=== PATIENT | female | born 1995 | race American Indian/Alaskan Native ===

== ENCOUNTER 2021-01-09 09:31 | Emergency (ER) | payer BC ==
[2021-01-09 10:58] LABS: Basophils # (Auto) 0.2 K/mm3 (0.0-0.1); Eosinophils # (Auto) 0.5 K/mm3 (0.0-0.4); Eosinophils % (Auto) 8.1 % (0.0-4.3); Hematocrit 38.6 % (30.3-42.9); Lymphocytes # (Auto) 1.6 K/mm3 (1.2-5.4); Lymphocytes % (Auto) 28.7 % (13.4-35.0); Mean Corpuscular HGB Conc 34 % (30-34); Mean Corpuscular Volume 87 fl (79-97); Monocytes # (Auto) 0.4 K/mm3 (0.0-0.8); Monocytes % (Auto) 6.8 % (0.0-7.3); Platelet Count 227 K/mm3 (140-440); Red Blood Count 4.43 M/mm3 (3.65-5.03); Red Cell Distribution Width 13.2 % (13.2-15.2)
[2021-01-09 11:00] LABS: Bilirubin,Urine NEG (Negative); Blood,Urine NEG (Negative); Color,Urine Straw (Yellow); Protein,Urine <15 mg/dL mg/dL (Negative); Urobilinogen,Urine < 2.0 mg/dL (<2.0)
--- NOTE | 2021-01-09 11:01 | Emergency Department Report ---
HPI - General Chief Complaint: Hypoglycemia Time Seen by Provider: 01/09/21 10:45 - HPI HPI: Room 43 The patient is a 25-year-old female present with a chief complaint of lightheadedness. The patient states for the past week she has had intermittent lightheadedness and has noticed her hands and feet intermittently get numb. The patient states she went to an urgent care facility 4 days ago and had labs drawn. The patient states she was diagnosed with a UTI and given prescription for antibiotics. The patient states after leaving urgent care she received a telephone call from the staff stating that her glucose was low at 34 and she was encouraged to eat. The patient states today she continued to have the lightheadedness prompted her to come to the emergency department. Patient denies chest pain, shortness of breath, cough, fever, nausea vomiting or dysuria. Patient denies any known sick contacts ED Past Medical Hx - Past Medical History Previous Medical History?: No - Surgical History Past Surgical History?: No - Family History Family history: no significant - Social History Smoking Status: Never Smoker Substance Use Type: None (Denies illicit drug use) ED Review of Systems ROS: Stated complaint: BLOOD SUGAR Other details as noted in HPI Constitutional: denies: fever Eyes: denies: eye pain ENT: denies: throat pain Respiratory: denies: cough, shortness of breath Cardiovascular: denies: chest pain Endocrine: no symptoms reported Gastrointestinal: denies: abdominal pain, nausea, vomiting Genitourinary: denies: dysuria Musculoskeletal: denies: back pain Neurological: other (Lightheadedness). denies: headache Physical Exam - Physical Exam Vital Signs: Vital Signs 01/09/21 01/09/21 01/09/21 09:38 09:47 10:41 Temperature 98.3 F Pulse Rate 94 H 68 Respiratory 18 18 18 Rate Blood Pressure 134/76 128/68 [Right] O2 Sat by Pulse 100 99 Oximetry Physical Exam: GENERAL: The patient is well-developed well-nourished female sitting on chair not appearing to be in acute distress. [] HEENT: Normocephalic. Atraumatic. Extraocular motions are intact. Patient has moist mucous membranes. NECK: Supple. Trachea midline CHEST/LUNGS: Clear to auscultation. There is no respiratory distress noted. HEART/CARDIOVASCULAR: Regular. There is no tachycardia. There is no gallop rub or murmur. ABDOMEN: Abdomen is soft, nontender. Patient has normal bowel sounds. There is no abdominal distention. SKIN: There is no rash. There is no edema. There is no diaphoresis. NEURO: The patient is awake, alert, and oriented. The patient is cooperative. The patient has no focal neurologic deficits. The patient has normal speech. Cranial nerves II through XII grossly intact. No dysmetria noted with finger -to-nose bilaterally. No nystagmus MUSCULOSKELETAL: There is no evidence of acute injury. ED Course Vital Signs 01/09/21 01/09/21 01/09/21 09:38 09:47 10:41 Temperature 98.3 F Pulse Rate 94 H 68 Respiratory 18 18 18 Rate Blood Pressure 134/76 128/68 [Right] O2 Sat by Pulse 100 99 Oximetry ED Medical Decision Making - Lab Data Result diagrams: 01/09/21 10:13 01/09/21 10:10 Laboratory Tests 01/09/21 01/09/21 01/09/21 09:45 10:10 10:13 WBC 5.7 RBC 4.43 Hgb 13.0 Hct 38.6 MCV 87 MCH 29 MCHC 34 RDW 13.2 Plt Count 227 Lymph % (Auto) 28.7 [place] % (Auto) 6.8 Eos % (Auto) 8.1 H Baso % (Auto) 3.0 H Lymph # (Auto) 1.6 [place] # (Auto) 0.4 Eos # (Auto) 0.5 H Baso # (Auto) 0.2 H Seg Neutrophils % 53.4 Seg Neutrophils # 3.0 D-Dimer Sodium 139 Potassium 4.1 Chloride 100.9 Carbon Dioxide 26 Anion Gap 16 BUN 11 Creatinine 0.6 Estimated GFR > 60 BUN/Creatinine Ratio 18 Glucose 92 POC Glucose 105 Calcium 9.2 TSH Free T4 HCG, Qual Urine Color Urine Turbidity Urine pH Ur Specific [place] Urine Protein Urine Glucose (UA) Urine Ketones Urine Blood Urine Nitrite Urine Bilirubin Urine Urobilinogen Ur Leukocyte Esterase Urine WBC (Auto) Urine RBC (Auto) U Epithel Cells (Auto) 01/09/21 01/09/21 01/09/21 10:20 11:08 11:08 WBC RBC Hgb Hct MCV MCH MCHC RDW Plt Count Lymph % (Auto) [place] % (Auto) Eos % (Auto) Baso % (Auto) Lymph # (Auto) [place] # (Auto) Eos # (Auto) Baso # (Auto) Seg Neutrophils % Seg Neutrophils # D-Dimer < 135.00 Sodium Potassium Chloride Carbon Dioxide Anion Gap BUN Creatinine Estimated GFR BUN/Creatinine Ratio Glucose POC Glucose Calcium TSH 1.390 Free T4 1.15 HCG, Qual Urine Color Straw Urine Turbidity Clear Urine pH 7.0 Ur Specific [place] 1.005 Urine Protein <15 mg/dl Urine Glucose (UA) Neg Urine Ketones Neg Urine Blood Neg Urine Nitrite Neg Urine Bilirubin Neg Urine Urobilinogen < 2.0 Ur Leukocyte Esterase Neg Urine WBC (Auto) 1.0 Urine RBC (Auto) 1.0 U Epithel Cells (Auto) 3.0 01/09/21 11:08 WBC RBC Hgb Hct MCV MCH MCHC RDW Plt Count Lymph % (Auto) [place] % (Auto) Eos % (Auto) Baso % (Auto) Lymph # (Auto) [place] # (Auto) Eos # (Auto) Baso # (Auto) Seg Neutrophils % Seg Neutrophils # D-Dimer Sodium Potassium Chloride Carbon Dioxide Anion Gap BUN Creatinine Estimated GFR BUN/Creatinine Ratio Glucose POC Glucose Calcium TSH Free T4 HCG, Qual Negative Urine Color Urine Turbidity Urine pH Ur Specific [place] Urine Protein Urine Glucose (UA) Urine Ketones Urine Blood Urine Nitrite Urine Bilirubin Urine Urobilinogen Ur Leukocyte Esterase Urine WBC (Auto) Urine RBC (Auto) U Epithel Cells (Auto) - EKG Data -: EKG Interpreted by Ak EKG shows normal: sinus rhythm Rate: normal - EKG Data When compared to previous EKG there are: previous EKG unavailable Interpretation: other (No ischemic changes seen) - Differential Diagnosis Dehydration, symptomatic anemia, electrolyte abnormality, Critical care attestation.: If time is entered above; I have spent that time in minutes in the direct care of this critically ill patient, excluding procedure time. ED Disposition Clinical Impression: Lightheadedness Disposition: DC-01 TO HOME OR SELFCARE Is pt being admited?: No Does the pt Need Aspirin: No Condition: Stable Instructions: Dizziness, [id number] Additional Instructions: Return to the emergency department should you develop worsening symptoms, inability to tolerate food or liquids, high fever or any other concerns Referrals: [facility] [Provider Group] - 3-5 Days Time of Disposition: 13:12
[2021-01-09 11:12] LABS: Blood Urea Nitrogen 11 mg/dL (7-17); Calcium 9.2 mg/dL (8.4-10.2); Hemolysis Index 65
[2021-01-09 11:17] LABS: BUN/Creatinine Ratio 18
[2021-01-09 11:50] LABS: Free T4 (Free Thyroxine) 1.15 ng/dL (0.76-1.46)
[2021-01-09 13:45] VITALS: BP 121/72
--- NOTE | 2021-01-12 21:28 | Electrocardiograph Report ---
[facility] Test Date: 2021-01-09 Test Time: 13:01:11 Pat Name: JESSEE YEPEZ Department: Room: Gender: F Portable Track Line Marker: KELVIN : 1995 Requested By: PEDRO PABLO STOKES Order Number: [id number] Reading MD: Sharri Vasquez Measurements Intervals [place] Rate: 72 P: 54 MO: 138 QRS: 8 QRSD: 100 T: 32 QT: 401 QTc: 441 Interpretive Statements Sinus rhythm Low voltage, precordial leads No previous ECG available for comparison Electronically Signed On 01-12-2021 21:27:30 EDT by Sharri Vasquez
== END 2021-01-09 13:45 | disposition home or self-care (01) ==
LOC: ED 09:31
DX: R42 Dizziness and giddiness (principal)
CPT/HCPCS: 36415; 80048; 81001; 82962; 84439; 84443; 84703; 85025; 85379; 93005